=== PATIENT | female | born 1980 | race Caucasian/White ===

== ENCOUNTER 2016-10-07 17:53 | Emergency (ER) | payer MEDICAID ==
[~2016-10-07] VITALS: Ht 165.1 cm; Wt 166.9 kg
[~2016-10-07 17:53] MED LIST: METFORMIN HCL500 MG PO; METFORMIN HCL850 MG PO; PRILOSEC20 MG PO
[2016-10-07 21:04] VITALS: BP 160/88
== END 2016-10-07 21:04 | disposition home or self-care (01) ==
LOC: ED 17:53
DX: S86.811A Strain of other muscle(s) and tendon(s) at lower leg level, right leg, initial encounter (principal); Z88.2 Allergy status to sulfonamides; X58.XXXA Exposure to other specified factors, initial encounter; Y93.89 Activity, other specified; Y92.89 Other specified places as the place of occurrence of the external cause; Y99.8 Other external cause status

== ENCOUNTER 2018-07-23 16:06 | Emergency (ER) | payer MEDICAID | END 2018-07-23 18:10 | disposition home or self-care (01) | LOC: ED 16:06 ==

== ENCOUNTER 2020-03-13 16:31 | Emergency (ER) | payer MEDICAID ==
[~2020-03-13] VITALS: Ht 162.6 cm; Wt 162.8 kg
[2020-03-13 16:48] VITALS: Ht 162.6 cm; Wt 162.8 kg
[2020-03-13 17:16] LABS: BASOPHIL % 0.4 % (0-2); PLATELET COUNT 279 x10^3mcL (130-400); RED CELL DISTRIBUTION WIDTH 14.3 % (11.5-14.5)
[2020-03-13 17:30] LABS: CALCIUM 9.4 mg/dL (8.5-10.1); CARBON DIOXIDE 34.8 mmol/L (21-32); CHLORIDE SERUM 98 mmol/L (98-107); CREATININE SERUM 0.7 mg/dL (0.6-1.0); GFR1 > 60 mL/min; GLUCOSE SERUM 290 mg/dL (74-106); SODIUM SERUM 137 mmol/L (136-145)
[2020-03-13 17:35] LABS: ALBUMIN 3.4 g/dL (3.4-5.0); ALKALINE PHOSPHATASE 127 U/L (46-116); ALT/SGPT 11 U/L (14-59); AST/SGOT 12 U/L (15-37); BILIRUBIN TOTAL 0.64 mg/dL (0.20-1.00); TOTAL PROTEIN, SERUM 7.7 g/dL (6.4-8.2)
[2020-03-13 20:11] VITALS: BP 119/72
== END 2020-03-13 20:11 | disposition home or self-care (01) ==
LOC: ED 16:31
PROVIDERS: Emergency Medicine
DX: R06.00 Dyspnea, unspecified (principal); R06.89 Other abnormalities of breathing; E66.9 Obesity, unspecified; J45.909 Unspecified asthma, uncomplicated; I10 Essential (primary) hypertension; E11.9 Type 2 diabetes mellitus without complications; E78.00 Pure hypercholesterolemia, unspecified; Z88.1 Allergy status to other antibiotic agents
CPT/HCPCS: 83880; Q0092